=== PATIENT | male | born 1995 | race Caucasian/White ===

== ENCOUNTER → 2018-11-04 15:02 | Outpatient (CLI) | payer OTHER, SELFPAY ==
[2018-11-04 17:50] LABS: AST(SGOT) 21 U/L (15-37); Alanine Aminotransfer ALT/SGPT 33 U/L (16-61); Albumin, Serum 4.3 g/dL (3.2-5.0); Alkaline Phosphatase 88 U/L (45-117); Bilirubin, Direct 0.11 mg/dL (0.00-0.30); Globulin 3.2 g/dL (2.2-4.2); Protein, Total 7.5 g/dL (6.4-8.2)
== END ==
PROVIDERS: Family Provider Internal Medicine; PCP Internal Medicine; Referring Provider Nurse Practitioner Family; Visit Provider Nurse Practitioner Family
DX: B35.3 Tinea pedis (principal); B35.1 Tinea unguium; L70.0 Acne vulgaris
CPT/HCPCS: 36415; 80076